=== PATIENT | male | born 1990 | race Caucasian/White ===

== ENCOUNTER 2017-06-17 09:52 | Emergency (ER) | payer SELFPAY ==
[~2017-06-17] VITALS: Ht 167.6 cm; Wt 65.9 kg
[2017-06-17 11:48] VITALS: BP 119/71
== END 2017-06-17 13:22 | disposition home or self-care (01) ==
LOC: EMS 09:55
DX: R07.81 Pleurodynia (principal); F12.90 Cannabis use, unspecified, uncomplicated
CPT/HCPCS: 71101; 93005; 99284